=== PATIENT | female | born 1970 | race Caucasian/White ===

== ENCOUNTER 2019-06-09 09:28 | Inpatient (IN) | payer OTHER ==
[~2019-06-09] VITALS: Ht 167.6 cm; Wt 75.8 kg
[2019-06-09 09:29] VITALS: BP 117/75
[2019-06-09] MEDS ORDERED: HYDROXYZINE PAM50 MG PO (09:45)
[2019-06-09] MEDS ORDERED: BUPROPION XL300 MG PO (09:45)
[2019-06-09] MEDS ORDERED: NEXIUM20 MG PO (09:45)
[2019-06-09] MEDS ORDERED: HYDROCODON-ACE1 EAC7 PO (09:46)
[2019-06-09] MEDS ORDERED: ADDERALL XR 3030 MG PO (09:47)
[2019-06-09 12:09] LABS: ABSOLUTE NEUTROPHILS 2.6 thou/uL (1.4-8.2); BASOPHILS 0.4 % (0.0-2.0); HEMATOCRIT 31.4 % (37.0-47.0); HEMOGLOBIN 10.6 gm/dL (12.0-15.0); MCHC 33.7 g/dL (28.0-37.0); MCV 80.3 fL (80.0-100.0); MONOCYTES 10.6 % (1.0-8.0); PLATELET COUNT 183 thou/uL (150-400); RBC 3.91 mil/uL (4.20-5.00); RDW 14.8 % (10.5-14.5); WBC 3.5 thou/uL (4.0-11.0)
[2019-06-09 12:17] LABS: CALCIUM 9.5 mg/dL (8.5-10.1); CREATININE 0.8 mg/dL (0.6-1.0)
[2019-06-09] MEDS ORDERED: IBUPROFEN 600600 M1 PO (13:34)
[2019-06-09] MEDS ORDERED: LEVAQUIN 750 M750 MG PO (13:34)
[2019-06-09 15:27] VITALS: BP 101/48
[2019-06-09 15:49] VITALS: BP 104/45
[2019-06-09 16:45] VITALS: BP 102/59
[2019-06-09 20:00] VITALS: BP 97/56
[2019-06-10 00:25] VITALS: BP 118/74
--- NOTE | 2019-06-10 02:10 | NUR ---
ASSUMED PT CARE AT 1900 PT WAS RESTING IN ROOM. CHECKED PT PAIN LEVEL AND HEADACHE WAS NOT RELIEVED. CALLED PHYSICIAN GOT ONE TIME DOSE OF MEDICATION AND PT WAS ABLE TO SLEEP. PT HAD NO OTHER C/O SOB OR N/V. PT DID HAVE BM AND C/O LIGHT DIARRHEA. WILL CONTINUE TO MONITOR PT PER POC.
[2019-06-10 04:03] VITALS: BP 105/62
[2019-06-10 05:32] LABS: HEMATOCRIT 26.9 % (37.0-47.0); HEMOGLOBIN 8.9 gm/dL (12.0-15.0); MCHC 33.1 g/dL (28.0-37.0); MCV 81.5 fL (80.0-100.0); PLATELET COUNT 115 thou/uL (150-400); RBC 3.31 mil/uL (4.20-5.00); RDW 14.5 % (10.5-14.5); WBC 2.2 thou/uL (4.0-11.0)
[2019-06-10 06:04] LABS: CALCIUM 8.2 mg/dL (8.5-10.1); CREATININE 0.7 mg/dL (0.6-1.0); MAGNESIUM 1.8 mg/dL (1.8-2.4); POTASSIUM 3.7 mmol/L (3.5-5.1)
[2019-06-10 08:00] VITALS: BP 121/85
[2019-06-10 08:26] LABS: ALBUMIN 2.3 g/dL (3.4-5.0); SGOT 32 U/L (15-37); SGPT 41 U/L (30-65); TOTAL BILIRUBIN 0.4 mg/dL (<0.1-1.0); TOTAL PROTEIN 5.9 g/dL (6.4-8.2)
[2019-06-10 08:38] LABS: % SATURATION 8 % (20-39); IRON 16 ug/dL (50-170); TIBC 211 ug/dL (250-450)
[2019-06-10 08:39] LABS: DIRECT BILIRUBIN < 0.1 mg/dL (<0.1-0.3)
[2019-06-10 08:51] LABS: ABSOLUTE NEUTROPHILS 1.7 thou/uL (1.4-8.2); PLATELET ESTIMATE NORMAL
[2019-06-10 09:14] LABS: FOLIC ACID 19.7 ng/mL (8.6-58.9); TSH 0.568 uIU/mL (0.358-3.740)
--- NOTE | 2019-06-10 11:27 | 2DMMODE ---
[facility] [address] [place] [address] 2 D/M-MODE ECHOCARDIOGRAM Name: JOSE SCHULTZ Room #: 215-P ADM IN .R.#: [id number] Admission: 06/09/19 Attend Phys: Jua nR Knutson Discharge: Date of : 70 Report #: [id number] THIS REPORT FOR: //name// APPROVED REPORT Study performed: 06/10/2019 10:31:06 EXAM: Comprehensive 2D, Doppler, and color-flow Echocardiogram Patient Location: Bedside Room #: [facility] Status: routine BSA: 1.82 HR: 93 bpm BP: 121/85 mmHg Rhythm: Sinus arrhythmia Other Information Study Quality: Adequate Technically limited study due to breast implants. Indications Tachycardia 2D Dimensions RVDd: 36.58 mm IVSd: 9.57 (7-11mm) LVOT Diam: 20.46 (18-24mm) LVDd: 42.60 mm PWd: 9.77 (7-11mm) LVDs: 30.06 (25-40mm) Aortic Root: 36.84 mm Volumes Left Atrial Volume (Systole) Single Plane 4CH: 39.83 mL Single Plane 2CH: 38.55 mL LA ESV Index: 23.00 mL/m2 Aortic Valve AoV Peak Kennedy.: 1.40 m/s AO Peak Gr.: 7.82 mmHg LVOT Max P.07 mmHg LVOT Max V: 1.33 m/s MALGORZATA Vmax: 3.12 cm2 Mitral Valve E/A Ratio: 1.6 [facility] [address] [place] [address] 2 D/M-MODE ECHOCARDIOGRAM Name: MARIONJOSE K Room #: 215-P ADM IN ..#: [id number] Admission: 06/09/19 Attend Phys: Juan R Knutson Discharge: Date of : 70 Report #: [id number] MV Decel. Time: 145.07 ms MV E Max Kennedy.: 1.09 m/s MV A Kennedy.: 0.68 m/s MV PHT: 42.07 ms IVRT: 58.82 ms Pulmonary Valve PV Peak Kennedy.: 0.96 m/s PV Peak Gr.: 3.71 mmHg Pulmonary Vein P Vein S: 0.85 m/s P Vein A: 0.39 m/s P Vein D: 0.55 m/s P Vein A Dur.: 90.0 msec P Vein S/D Ratio: 1.55 Tricuspid Valve TR Peak Kennedy.: 2.66 m/s RAP Estimate: 10.00 mmHg TR Peak Gr.: 28.26 mmHg PA Pressure: 38.00 mmHg Left Ventricle The left ventricle is normal size. There is normal LV segmental wall motion. There is normal left ventricular wall thickness. Left ventricular systolic function is normal. LVEF is 55-60%. The left ventricular diastolic function is normal. Right Ventricle The right ventricle is normal size. The right ventricular systolic function is normal. Atria The left atrium size is normal. The right atrium size is normal. Aortic Valve The aortic valve is normal in structure. No aortic regurgitation is present. There is no aortic valvular stenosis. Mitral Valve The mitral valve is normal in structure. Mild mitral regurgitation. Tricuspid Valve The tricuspid valve is normal in structure. Mild to moderate tricuspid regurgitation. Estimated PAP is 35 mmHg. Pulmonic Valve [facility] [address] [place] [address] 2 D/M-MODE ECHOCARDIOGRAM Name: JOSE SCHULTZ Rafael Room #: 215-P [facility] IN .R.#: [id number] Admission: 06/09/19 Attend Phys: Juan R Knutson Discharge: Date of : 70 Report #: [id number] The pulmonary valve is normal in structure. Trace pulmonic regurgitation. Great Vessels The aortic root is normal in size. Ascending aorta is not well visualized. IVC is dilated and collapses <50% with inspiration. Pericardium There is no pericardial effusion. <Conclusion> The left ventricle is normal size. There is normal left ventricular wall thickness. Left ventricular systolic function is normal. The left ventricular diastolic function is normal. The right ventricle is normal size. The left atrium size is normal. The aortic valve is normal in structure. Mild mitral regurgitation. Mild to moderate tricuspid regurgitation. Estimated PAP is 35 mmHg. <ELECTRONICALLY SIGNED> By: Jason Lizarraga MD 06/10/19 1127 26 26 Jason Lizarraga MD /INF
[2019-06-10 11:29] LABS: HEMATOCRIT 28.8 % (37.0-47.0); HEMOGLOBIN 9.4 gm/dL (12.0-15.0)
[2019-06-10 12:57] VITALS: BP 142/90
[2019-06-10 16:00] VITALS: BP 107/63; BP 150/97
--- NOTE | 2019-06-10 18:38 | NUR ---
ASSUMED CARE AT SHIFT CHANGE, ALERT AND ORIENTED. VSS AND AFEBRILE. C/O HEADACHE, AND NAUSEA MEDICATED NEEDED AND PATIENT REPORT RELIEVE. AND WILL COTINUE WITH POC.
[2019-06-10 20:05] VITALS: BP 111/56
[2019-06-10 23:09] LABS: HEMATOCRIT 30.7 % (37.0-47.0); HEMOGLOBIN 10.1 gm/dL (12.0-15.0)
[2019-06-11 03:43] VITALS: BP 105/65
--- NOTE | 2019-06-11 05:35 | NUR ---
ASSUMED PT CARE AT 1900. VSS. PT A&0X4. PT IS STABLE ON HER FEET, COMPLAINED OF MIGRAINE HEADACHE; MEDS GIVEN PER MAR, PT IS STABLE, NO COMPLAINTS OF RESPIRATORY DISTRESS OVERNIGHT, WILL CONTINUE TO MONITOR PER POC.
[2019-06-11 07:25] VITALS: BP 106/64
[2019-06-11 11:00] VITALS: BP 106/81
[2019-06-11 11:34] LABS: HEMATOCRIT 30.3 % (37.0-47.0); HEMOGLOBIN 9.8 gm/dL (12.0-15.0)
[2019-06-11 11:35] LABS: ABSOLUTE RETIC COUNT 0.0577 10^6/uL; OBSERVED RETIC COUNT 1.56 % (0.6-2.6)
[2019-06-11 11:42] LABS: URIC ACID* 2.4 mg/dL (2.6-7.2)
[2019-06-11 15:32] VITALS: BP 108/70
--- NOTE | 2019-06-11 16:42 | NUR ---
Chart reviewed and case discussed with the care team. Pt is a&ox4 and was working and indep prior to admission. She has active health insurance for f/u care. Her father is a physician. She is up ad betty in her room and no cm interventions have been identified. Will remain available should dc needs arise.
--- NOTE | 2019-06-11 17:52 | NUR ---
ASSESSMENT CHARTED. PT ALERT AND ORIENTED. VSS. RECEIVED PRN PAIN MED FOR [place] WITH PARTIAL RELIEF. HAD EMESIS X1 THIS AM. PRN ZOFRAN GIVEN. ORDERS GIVEN TO TRANSFER PT TO ROOM 447. REPORT CALLED IN TO THE NURSE.
[2019-06-11 18:42] VITALS: BP 103/68
--- NOTE | 2019-06-11 18:44 | NUR ---
Assumed pt care at 1830. Pt is AOx4, VSS, continent of B&B. Pt denies pain at this time. Call light/personal items within reach, & family at bedside. Will continue to monitor pt.
[2019-06-11 22:00] VITALS: BP 121/66
[2019-06-12 05:00] VITALS: BP 108/66
[2019-06-12 07:08] LABS: HAV IgM AB (ANTI-HAV IgM) Negative (Negative); HEPATITIS B SURFACE AG Negative (Negative); HEPATITIS C VIRUS AB 0.2 (0.0-0.9)
--- NOTE | 2019-06-12 08:09 | NUR ---
PATIENT ALERT AND ORIENTED X4. IV SITE CHANGED FROM LAC TO RFA. C/O PAIN. MIGRAINE HEADACHE. MED GIVEN. UP AD DEAN IN ROOM. SLEPT OFF AND ON DURING NIGHT.
[2019-06-12 09:05] VITALS: BP 99/58
[2019-06-12 12:13] LABS: HEMATOCRIT 36.1 % (37.0-47.0); MCH 26.7 pg (26.0-34.0); MCHC 32.8 g/dL (28.0-37.0); MCV 81.4 fL (80.0-100.0); RBC 4.44 mil/uL (4.20-5.00); RDW 14.7 % (10.5-14.5); WBC 8.4 thou/uL (4.0-11.0)
[2019-06-12 12:21] LABS: HEMOGLOBIN 11.8 gm/dL (12.0-15.0); PLATELET COUNT 297 thou/uL (150-400)
[2019-06-12 12:26] LABS: ALBUMIN 2.4 g/dL (3.4-5.0); CREATININE 0.7 mg/dL (0.6-1.0); MAGNESIUM 2.3 mg/dL (1.8-2.4); POTASSIUM 3.9 mmol/L (3.5-5.1); TOTAL BILIRUBIN 0.3 mg/dL (<0.1-1.0); TOTAL PROTEIN 6.1 g/dL (6.4-8.2)
[2019-06-12 13:09] LABS: ABSOLUTE NEUTROPHILS 6.6 thou/uL (1.4-8.2); METAMYELOCYTES 2 %
--- NOTE | 2019-06-12 17:02 | NUR ---
Assumed care at 0700, pt is AOx4. No c/o pain at this time. Pt VSS, up ad betty in her room. Pt's call light and personal belongings in reach. Will continue to monitor.
[2019-06-12 17:29] VITALS: BP 108/70
[2019-06-12 19:30] VITALS: BP 122/86
[2019-06-13 05:13] LABS: HEMATOCRIT 34.5 % (37.0-47.0); HEMOGLOBIN 11.3 gm/dL (12.0-15.0); MCHC 32.9 g/dL (28.0-37.0); MCV 82.1 fL (80.0-100.0); PLATELET COUNT 273 thou/uL (150-400); RDW 14.6 % (10.5-14.5); WBC 6.5 thou/uL (4.0-11.0)
[2019-06-13 05:18] LABS: CALCIUM 8.5 mg/dL (8.5-10.1); CREATININE 0.7 mg/dL (0.6-1.0); MAGNESIUM 2.3 mg/dL (1.8-2.4); PHOSPHORUS 2.7 mg/dL (2.5-4.9); POTASSIUM 3.8 mmol/L (3.5-5.1)
--- NOTE | 2019-06-13 07:40 | NUR ---
PT RESTING IN BED NO RESP DISTRESS NO COUGH NO PAIN.
[2019-06-13 08:19] VITALS: BP 122/79
[2019-06-13 08:34] LABS: ABSOLUTE NEUTROPHILS 4.1 thou/uL (1.4-8.2); METAMYELOCYTES 2 %
[2019-06-13 08:35] LABS: ANISOCYTOSIS 1+
[2019-06-13 08:36] LABS: MICROCYTES FEW
[2019-06-13] MEDS ORDERED: ACETAMINOPHEN325 M1 PO (14:27)
[2019-06-13] MEDS ORDERED: DOXYCYCLINE HYC50 MG PO (14:27)
[2019-06-13] MEDS ORDERED: MUCINEX600 MG PO (14:28)
[2019-06-13] MEDS ORDERED: ACIDOPHILUS1 EAC4 PO (14:28)
[2019-06-13] MEDS ORDERED: PROAIR HFA8.5 GM INH (14:29)
[2019-06-13] MEDS ORDERED: RAYOS5 MG PO (14:29)
[2019-06-13 14:36] VITALS: BP 122/79
--- NOTE | 2019-06-13 15:36 | NUR ---
DISCHARGE PAPERWORK GONE OVER WITH PATIENT. SIGNED AND COPY IN CHART. IV ACSESS DCD. RX'S CALLED TO [facility] ON [address] FOR ABT AND PREDNISONE. ALL BELONGINGS PACKED AND SENT WITH PATIENT. PT W/O PAIN OR RESP DISTRESS AT DISCHARGE.
[2019-06-14 12:10] LABS: HEMATOLOGY COMMENTS Note: (()); HEMOGLOBIN 9.7 g/dL (11.1-15.9)
[2019-06-15 14:07] LABS: ANTI-EBNA <18.0 U/mL (0.0-17.9); ANTI-VCA/IgG 43.9 U/mL (0.0-17.9); ANTI-VCA/IgM <36.0 U/mL (0.0-35.9); EBV EARLY ANTIGEN <9.0 U/mL (0.0-8.9)
[2019-06-16 19:06] LABS: ADENOVIRUS Positive (Negative); INFLUENZA A Negative (Negative); INFLUENZA B Negative (Negative); METAPNEUMOVIRUS Negative (Negative); PARAINFLUENZA 1 Negative (Negative); PARAINFLUENZA 2 Negative (Negative); PARAINFLUENZA 3 Negative (Negative); RHINOVIRUS Negative (Negative); RSV A Negative (Negative); RSV B Negative (Negative)
[2019-06-16 22:11] LABS: ADENOVIRUS Negative (Negative); INFLUENZA A Negative (Negative); INFLUENZA B Negative (Negative); METAPNEUMOVIRUS Negative (Negative); PARAINFLUENZA 1 Negative (Negative); PARAINFLUENZA 2 Negative (Negative); PARAINFLUENZA 3 Negative (Negative); RHINOVIRUS Negative (Negative); RSV A Negative (Negative); RSV B Negative (Negative)
--- NOTE | 2019-06-22 13:32 | HC ---
[facility] [place] [address] [place] [address] CONSULTATION Name: JOSE SCHULTZ Rafael Room #: 447-P [facility] IN M.R.#: [id number] Admission: 06/09/19 Attend Phys: Cachorro Bucio MD Discharge: 06/13/19 Date of : 70 Report #: [id number] THIS REPORT FOR: //name// CC: Cachorro Bucio [facility] physician/PCP NO PCP DATE OF SERVICE: 06/12/2019 REASON FOR CONSULTATION: Pancytopenia. REQUESTING PHYSICIAN: Dr. Bucio. HISTORY OF PRESENT ILLNESS: The patient is a pleasant 48-year-old previously healthy woman who was admitted to the hospital with several days' complaints of fevers, shortness of breath, cough. She states that she felt she had flu and so she took Tamiflu. Symptoms did not resolve, she presented to the Emergency Room. She had severe myalgias as well. She had chest x-ray done, which showed bilateral infiltrates. ESR is 100 and CRP elevated. The patient is admitted to the hospital. She is on Levaquin for community-acquired pneumonia. She was found to have pancytopenia. Hematology consult is requested. She is on the medical floor. Today, she is feeling a little bit better, but still continues to have cough, shortness of breath. She has not had fevers since she has been in the hospital. Denies arthralgia. Denies rash. She had one episode of diarrhea while in the hospital, but no nausea, vomiting, or diarrhea previously. PAST MEDICAL HISTORY: Significant for hysterectomy, otherwise healthy. SOCIAL HISTORY: She is , has 2 children, ages 16 and 13. She states nobody has been sick around her. She does not smoke. FAMILY HISTORY: Noncontributory. REVIEW OF SYSTEMS: See above. PHYSICAL EXAMINATION: GENERAL: Reveals a well-developed, well-nourished female, not in acute distress. VITAL SIGNS: Blood pressure 99/58, heart rate is 92, temperature 97.3, respirations 18. HEENT: Does not reveal thrush. LYMPHATICS: There is no cervical or axillary lymphadenopathy. HEART: Normal S1, S2. LUNGS: No wheezing. Crackles in the right upper lung. LABORATORY DATA: White count on admission 3.2, yesterday 2.2; hemoglobin 10.[address] [address] CONSULTATION Name: JOSE SCHULTZ Room #: 447-P [facility] IN .R.#: [id number] Admission: 06/09/19 Attend Phys: Cachorro Bucio MD Discharge: 06/13/19 Date of : 70 Report #: [id number] on admission, today 9.8. MCV 80.3. Platelet count on admission 183, today 115. Neutrophils 71%, bands 5%, lymphocytes 20%, monocytes 4%. Absolute reticulocyte count of 0.0577. Sodium 138, potassium 3.6, BUN 8, creatinine 0.7, ALT 41, bilirubin 0.4, AST 32, total protein 5.9, albumin 2.3, LDH 247. CRP 151.2. B12 normal. Ferritin 190. Folate is normal. Sed rate is 100. Influenza A and B negative. RADIOLOGY: CT of chest negative for pulmonary embolus, bilateral diffuse pneumonitis, confluent lobar type pneumonitis throughout the posterior aspect of the right upper lobe. Abdominal ultrasound shows hepatosplenomegaly. ASSESSMENT AND PLAN: Pancytopenia secondary to underlying infection/sepsis. B12, folate is normal. Most likely, the patient has underlying viral illness, which is complicated with bacterial pneumonia. I am planning to order CMV, EBV. 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 I will check her protein electrophoresis. Otherwise, I agree with management. We will continue to monitor CBC closely. Thank you very much for allowing me to participate in care of this patient. <ELECTRONICALLY SIGNED> By: Baldo Louie MD 06/22/19 1332 [id number] Baldo Louie MD /nt
== END 2019-06-13 15:30 | disposition home or self-care (01) | DRG 871 ==
LOC: ER 09:28 → EROBS 15:16 → 2N 15:16 → 4S 06-11 18:34
PROVIDERS: Emergency Medicine; Internal Medicine; Internal Medicine Hematology & Oncology; Nurse Practitioner; ADMIT Hospitalist
DX: A41.9 Sepsis, unspecified organism (principal); J15.9 Unspecified bacterial pneumonia; D61.818 Other pancytopenia; I25.10 Atherosclerotic heart disease of native coronary artery without angina pectoris; K21.9 Gastro-esophageal reflux disease without esophagitis; G43.909 Migraine, unspecified, not intractable, without status migrainosus; D50.9 Iron deficiency anemia, unspecified; Z28.21 Immunization not carried out because of patient refusal; Z90.710 Acquired absence of both cervix and uterus; Z79.899 Other long term (current) drug therapy
CPT/HCPCS: 10081; 10102

== ENCOUNTER → 2019-06-29 | Outpatient (CLI) | payer OTHER ==
[~2019-06-29] MED LIST: ACETAMINOPHEN325 M1 PO; ACIDOPHILUS1 EAC4 PO; ADDERALL XR 3030 MG PO; BUPROPION XL300 MG PO; DOXYCYCLINE HYC50 MG PO; HYDROCODON-ACE1 EAC7 PO; HYDROXYZINE PAM50 MG PO; IBUPROFEN 600600 M1 PO; LEVAQUIN 750 M750 MG PO; MUCINEX600 MG PO; NEXIUM20 MG PO; PROAIR HFA8.5 GM INH; RAYOS5 MG PO
== END ==
LOC: RAD 08:35
DX: R91.8 Other nonspecific abnormal finding of lung field (principal); J18.9 Pneumonia, unspecified organism